=== PATIENT | male | born 1970 | race Caucasian/White ===

== ENCOUNTER 2017-05-11 15:35 | Observation (INO) | payer OTHER ==
[2017-05-11] MEDS ORDERED: NS 1,000 ML IV ONE (15:41)
[2017-05-11] MEDS ORDERED: RANITIDINE 50 MG/2 ML VIAL IVP ONE (15:41)
[2017-05-11] MEDS ORDERED: methylPREDNISolone SOD SUCC 125 MG/2 ML VIAL IVP ONE (15:41)
--- NOTE | 2017-05-11 15:59 | EDPHY ---
H & P Time Seen by Provider: 05/11/17 15:46 HPI/ROS: CHIEF COMPLAINT: Anaphylaxis HISTORY OF PRESENT ILLNESS: 46-year-old male presents to the emergency department by private vehicle with acute anaphylactic reaction. The patient states he was at home watching football and developed sudden onset of intense itching in his palm side. He since has developed diffuse rash, difficulty swallowing. He denies difficulty breathing. He has never had this type of reaction in the past. He was drinking tomato juice at the time which she has had in the past without any problems. No known allergies to anything. Patient has a history of HIV positive. No change in his medications. No new medications. Denies abdominal pain. No vomiting. REVIEW OF SYSTEMS: Constitutional: No fever, no chills. Eyes: No double or blurry vision. ENT: No sore throat. Respiratory: No cough, no shortness of breath. Cardiac: No chest pain. Gastrointestinal: No abdominal pain, vomiting or diarrhea. Genitourinary: No dysuria. Musculoskeletal: No neck or back pain. Skin: No rashes. Neurological: No headache. (Marion Pak) Past Medical/Surgical History: HIV positive (Marion Pak) Social History: and lives in [place] (Marion Pak) Physical Exam: General Appearance: Alert, no distress. Patient has a muffled voice. Face is diffusely erythematous. Lips are swollen. Tongue is swollen. Uvula swelling. Eyes: Pupils equal and round. Extraocular motions are all intact. ENT: Mouth: Mucous membranes moist. Posterior pharynx and tongue very swollen. Respiratory: No wheezing, rhonchi, or rales, lungs are clear to auscultation. Cardiovascular: Regular rate and rhythm. Gastrointestinal: Abdomen is soft and nontender, no masses, no rebound or guarding, bowel sounds normal. Neurological: Alert and oriented x 3, cranial nerves II through XII grossly intact Skin: Diffuse erythema noted to face, chest, abdomen, back and upper extremities. No vesicles. Musculoskeletal: Nontender to palpate along the cervical, thoracic or lumbar spine. Neck is supple. Extremities: Full range of motion and no peripheral edema. Psychiatric: Patient is oriented X 3, there is no agitation. (Marion Pak) Constitutional: Initial Vital Signs Heart Rate 120 H 05/11/17 15:54 Respiratory Rate 22 H 05/11/17 15:54 Blood Pressure 153/95 H 05/11/17 15:54 O2 Sat (%) 96 05/11/17 15:54 O2 Delivery Mode Room Air Allergies/Adverse Reactions: No Known Allergies Allergy (Unverified 05/11/17 17:19) Home Medications: Medication Instructions Recorded Acyclovir [Acyclovir] 400 mg PO HS 05/11/17 Dolutegravir Sodium [Tivicay] 50 mg PO HS 05/11/17 Emtricitabine/Tenofov Alafenam 200 mg PO HS 05/11/17 [Descovy 200-25 mg Tablet] Omeprazole [Prilosec 20 mg] 20 mg PO DAILY 05/11/17 Medical Decision Making ED Course/Re-evaluation: I was very involved with the care of this patient from the moment he arrived. Initially he received 300 mcg of IM epinephrine with IV Solu-Medrol, IV ranitidine and IV diphenhydramine. He has gradually improved through his emergency department course. No known inciting event for this anaphylactic reaction. He has been on the same HIV medications for years. No Rickey inhibitors or other medications. 4:55 p.m., patient re-evaluated. Doing much better. No voice changes. Upper airway sounds are clear. He still has some mild angioedema involving his lips. His tongue is less edematous but still moderately swollen as is his uvula. I discussed plan for admission to the step-down unit under the hospitalist service. He consents. 5:00 p.m., spoke with hospitalist Dr. Damon. She accepts this patient for admission. The patient's remaining emergency department course under my care has been uneventful. Patient admitted to the step-down unit in stable and improved condition. (Camilla Clarke) 46-year-old male presents to the emergency department with acute anaphylaxis. Patient had uvular swelling, tongue swelling, lip swelling and full body rash. The patient was given 0.3 mg of IM epinephrine, 50 mg of IV diphenhydramine, 50 mg of IV ranitidine, and 125 mg of IV Solu-Medrol. The patient was also given IV normal saline. Dr. Camilla Clarke was also involved in this patient's care who also evaluated the patient. The patient was observed throughout his stay in the emergency department. After over 2 hr of observation, the patient had no worsening symptoms, however he continued to have tongue swelling. The patient will be admitted to the hospitalist for further observation. (Marion Pak) Differential Diagnosis: Including but not limited to anaphylaxis, acute allergic reaction, cellulitis, angioedema (Marion Pak) - Data Points Medications Given: Discontinued Medications Diphenhydramine HCl (Benadryl Injection) 50 mg IVP EDNOW ONE Stop: 05/11/17 15:42 Last Admin: 05/11/17 16:01 Dose: 50 mg Epinephrine HCl (Epinephrine) 0.3 mg IM EDNOW ONE Stop: 05/11/17 15:42 Last Admin: 05/11/17 16:02 Dose: 0.3 mg Sodium Chloride (Ns) 1,000 mls @ 0 mls/hr IV ONCE ONE; Wide Open PRN Reason: Protocol Stop: 05/11/17 15:42 Last Admin: 05/11/17 16:02 Dose: 1,000 mls Epinephrine HCl 1 mg/ Sodium (Chloride) 250 mls @ 0 mls/hr IV EDNOW ONE; Per Protocol PRN Reason: Protocol Stop: 05/11/17 16:31 Last Admin: 05/11/17 17:25 Dose: Not Given Methylprednisolone Sodium Succinate (Solu-Medrol) 125 mg IVP EDNOW ONE Stop: 05/11/17 15:42 Last Admin: 05/11/17 16:02 Dose: 125 mg Ranitidine HCl (Zantac) 50 mg IVP EDNOW ONE Stop: 05/11/17 15:42 Last Admin: 05/11/17 16:02 Dose: 50 mg Departure - Departure Disposition: [facility] Inpatient Acute Clinical Impression: Acute anaphylaxis Qualifiers: Encounter type: initial encounter Qualified Code(s): T78.2XXA - Anaphylactic shock, unspecified, initial encounter Angioedema Qualifiers: Encounter type: initial encounter Qualified Code(s): T78.3XXA - Angioneurotic edema, initial encounter Condition: Fair
[2017-05-11] MEDS ORDERED: EPINEPHrine 1 MG in NS 250 ML IV ONE (16:30)
[2017-05-11 18:17] LABS: PLATELET COUNT 194 10^3/uL (150-400)
[2017-05-11] MEDS ORDERED: diphenhydrAMINE 25 MG CAP PO PRN (18:39)
[2017-05-11] MEDS ORDERED: ONDANSETRON 4 MG/2 ML VIAL IVP PRN (18:41)
[2017-05-11] MEDS ORDERED: ACETAMINOPHEN 325 MG TAB PO PRN (18:41)
--- NOTE | 2017-05-11 19:18 | GHP ---
[f rep st] HISTORY AND PHYSICAL DATE OF ADMISSION: 05/11/2017 CHIEF COMPLAINT: Tongue swelling. HISTORY: The patient is a 46-year-old male, HIV positive, with undetectable viral load, on stable me dications, who presents with acute anaphylaxis. It started with itching of his hands, then his hands turned very red, then his head began to itch. He subsequently noticed that his lips, tongue, and uv lisa were swollen. At no point did he have any trouble breathing. He had just drank some tomato juic e prior to the event, but he drank this tomato juice many times in the past without any difficulties. He denies any new recent medications or any change in recent habits. There have been no recent med ication changes. He was doing some laundry and had his hands in his sock drawer and it was while his hands were in his sock drawer the itching started. So, he wonders if there was an insect in there t hat might have bitten him, although there is no visible bug bite and he did not feel it. He presente d to the emergency room with a very swollen tongue, lips, and uvula and was emergently given IM epi, IV Solu-Medrol, IV ranitidine, and IV Benadryl, and he is now starting to have some improvement. He is being admitted to observation, to step-down unit, given high risk nature of possible airway compro mise. PAST MEDICAL HISTORY: HIV positive with undetectable viral load for years. MEDICATIONS: Please see computer record for full detailed list. ALLERGIES: No known drug allergies. SOCIAL HISTORY: No smoking. Drinks 10 alcoholic beverages per week. He lives with his . REVIEW OF SYSTEMS: A complete review of systems obtained. Review of systems negative for constituti onal, HEENT, GI, pulmonary, cardiovascular, , hematology, skin, musculoskeletal, endocrine, psych, except for positives and negatives as noted in HPI. FAMILY HISTORY: Reviewed, noncontributory to presenting complaint. PHYSICAL EXAMINATION: GENERAL: Well-developed, well-nourished male, in no distress. VITAL SIGNS: Temperature is afebrile, pulse 120, blood pressure 148/100, satting 95% on room air. EYES: Normal c onjunctivae. Pupils equal, reactive to light. ENT: Normal ears and nose. Hearing intact. Normal teeth. Oropharynx moist. At this point, the swelling of his lips and tongue has improved dramatical ly. No obvious uvular swelling. NECK: Trachea midline. No thyromegaly. CHEST: Normal respirator y effort. LUNGS: Clear to auscultation bilaterally. CARDIOVASCULAR: Regular rhythm. No murmur. No lower extremity edema. ABDOMEN: Soft, nontender. No hepatosplenomegaly. SKIN: Warm, dry, inta ct without rash. MUSCULOSKELETAL: No cyanosis or clubbing. Strength 5/5 upper and lower extremitie s. NEUROLOGIC: Cranial nerves intact. Normal sensation to light touch. PSYCHIATRIC: Alert and or iented x3. Normal affect. Normal judgment. Normal memory. LABORATORY DATA: White count 9.96, hematocrit 41, platelets 194. Sodium 140, potassium 4.4, chlorid e 106, bicarb 21, BUN 14, creatinine 0.9, glucose 108. This case was discussed with Marion Pak, emergency room provider, regarding emergency room course. ASSESSMENT/PLAN: 1. Acute anaphylaxis. The offending agent is unclear. No recent new medications or foods. Query a n insect bite. He is improving after intravenous and intramuscular epinephrine, intravenous Solu-Med rol 125 mg, intravenous Zantac and intravenous Benadryl. He will be admitted to step-down unit for o bservation and will continue intravenous steroids overnight. 2. Human immunodeficiency virus positive. Continue his usual antiretrovirals. His viral load is un detectable. CODE STATUS: Full. ADMISSION STATUS: 1. We will admit to observation as I anticipate home tomorrow if he continues to improve. 2. DVT prophylaxis. He is low risk. We will hold off on pharmacologic prophylaxis at this time. /[id number]/MODL
[2017-05-11] MEDS ORDERED: FAMOTIDINE 20 MG/2 ML SDV IVP SCH (21:00)
[2017-05-11] MEDS ORDERED: Dolutegravir Sodium [Tivicay] 50 MG PO SCH (21:00)
[2017-05-11] MEDS ORDERED: Emtricitabine/Tenofov Alafenam [Descovy 200-25 Mg Tablet] PO SCH (21:00)
[2017-05-11] MEDS ORDERED: ACYCLOVIR 400 MG TAB PO SCH (21:00)
[2017-05-11] MEDS: methylPREDNISolone SOD SUCC 40 MG/ML VIAL IVP SCH (21:02)
[2017-05-11] MEDS ORDERED: ALBUTEROL 3 ML DEYVIAL ONE (21:43)
[2017-05-11] MEDS ORDERED: RANITIDINE 50 MG/2 ML VIAL ONE (21:43)
[2017-05-11] MEDS ORDERED: methylPREDNISolone SOD SUCC 125 MG/2 ML VIAL ONE (21:43)
[2017-05-12] MEDS: methylPREDNISolone SOD SUCC 40 MG/ML VIAL IVP SCH (05:44)
[2017-05-12 07:33] VITALS: BP 159/97; PULSE 93; RESP 23; TEMP 98.9; O2SAT 92
[2017-05-12] MEDS ORDERED: PANTOPRAZOLE SODIUM 40 MG TAB PO SCH (09:00)
--- NOTE | 2017-05-12 13:41 | GDS ---
[f rep st] DISCHARGE SUMMARY DISCHARGE DIAGNOSES: 1. Resolved tongue swelling thought to be due to anaphylaxis of unclear etiology. 2. History of Human Immunodeficiency Virus. CONSULTANTS: None. HOSPITAL COURSE: 1. Anaphylaxis: The patient was admitted to the intensive care unit after he had episode of tongue swelling. The offending agent has not been determined. He has been closely monitored in the intensi ve care unit. On day of discharge, he states his swelling has resolved. He was discharged with a pr escription for an EpiPen to be used at any signs of acute allergic reaction. PHYSICAL EXAM: VITAL SIGNS: On day of discharge, blood pressure 159/97, pulse of 93, respiratory ra te 23, O2 saturation 92% on room air. GENERAL: No acute distress. RESPIRATORY: Normal respiratory status. No stridor. Lungs are clear. No wheezes, rales, or rhonchi. Tongue is normal with no sig ns of swelling. SKIN: Clear without rash. DISCHARGE MEDICATIONS: Please refer to discharge medication reconciliation in [facility] for details. All home medications were continued as usual home dosages. New medications on hospital discharge, EpiPen to be used as needed for signs of anaphylaxis. DISCHARGE INSTRUCTIONS: The patient was urged to seek outpatient followup with cyber security architect. He should also follow up with his primary care provider in the next week for routine hospital followup. He sh ould call [phone] if he develops any news signs of anaphylaxis. /[id number]/MODL
--- NOTE | 2017-05-12 16:04 | ASDISCHSUM ---
Discharge Information Plan Status:Home with No Needs Medically Cleared to Leave:05/11/2017 Discharge Date:05/12/2017 09:33 AM CM D/C Disposition:Home, Routine, Self-Care ADT D/C Disposition:Home, Routine, Self-Care Projected Discharge Date:05/12/2017 09:00 AM Transportation at D/C:Family Discharge Delay Reason: Follow-Up Date:05/12/2017 09:00 AM Discharge Slot: Final Diagnosis:Anaphylaxis Placement Information Patient Contact Information Contact Name:TYSON Relationship:Life Partner Address:[facility] [address] Work Phone: [facility]:[employer] Alternate Phone: [facility]/Zip Code:[place] [address] Email: Financial Information Financial Class:HMO and PPO Plans Primary Plan Desc:BR[employer] PPO [employer] Primary Plan Number:[id number] Secondary Plan Desc: Secondary Plan Number: Assessment Information Case Management Discharge Plan Note Case Management Discharge Discharge Order Complete? Answers: Yes Patient to Obtain Answers: Independently Medications Transportation Arranged Answers: Family/Friends Transport will Pick (Date 05/12/2017 09:30 AM & Time) Discharge Comments Notes: 46 year old male admitted for anaphylaxis of [place] etiology. He has a hx of immunodeficiency virus. Swelling resolved over night. He is to f/u with his PCP and an oceanic sciences professor. No other needs at this time. Date Signed: 05/12/2017 04:02 PM Electronically Signed By:mAy Bishop LCSW Intervention Information
== END 2017-05-12 09:33 | disposition home or self-care (01) ==
LOC: F2N 17:45
PROVIDERS: ADMIT Internal Medicine; ATTEND Family Medicine
DX: T78.2XXA Anaphylactic shock, unspecified, initial encounter (principal); X58.XXXA Exposure to other specified factors, initial encounter; Y92.018 Other place in single-family (private) house as the place of occurrence of the external cause; Y92.9 Unspecified place or not applicable; B20 Human immunodeficiency virus [HIV] disease
CPT/HCPCS: G0378 ×2; 96374; J0171; J1200; J2780; J2920; J2930; J7613